=== PATIENT | female | born 1980 | race Caucasian/White ===

== ENCOUNTER 2025-03-23 09:13 | Emergency (ER) | payer OTHER, SELFPAY ==
[2025-03-23 09:16] VITALS: BP 150/111
[2025-03-23 09:29] VITALS: BP 129/60
--- NOTE | 2025-03-23 09:40 | ED.GENMED ---
History of Present Illness
General
Chief Complaint: Cardiac Symptoms
Source: patient
Exam Limitations: none
Time Seen by Provider: 03/23/25 09:23
History of Present Illness
History of Present Illness:
See MDM
Past History
Past History
ED Past Medical History: None
ED Past Surgical History: None
Social History
Tobacco: Non-smoker
Alcohol: None
Phy Exam
Physical Exam
Physical Exam:
See MDM
Course
Orders/Labs/Results
Orders:
Orders
03/23/25 09:18
Electrocardiogram (*1) Urgent
Reason for Study: Atrial Fibrillation
EKG- Treatment ONCE
03/23/25 10:01
Propranolol [Inderal] 10 mg PO NOW STA
03/23/25 10:17
Complete Blood Count/With Diff Urgent
Comprehensive Metabolic Panel Urgent
D-Dimer Urgent
TSH Reflex To Free T4 Urgent
Troponin I Urgent
Abnormal Lab Results
03/23/25
10:17
Neutrophils % 80.3 H %
(42.2-75.2)
Lymphocytes % 14.9 L %
(20.5-51.1)
Glucose 110 H mg/dl
(70-99)
Calcium 10.5 H mg/dl
(8.4-10.2)
Total Protein 8.6 H g/dl
(6.3-8.2)
03/23/25 10:17
03/23/25 10:17
Vital Signs
Initial and Last Documented VS:
Initial Vital Signs
Temp Pulse Resp BP Pulse Ox
97.6 F 105 16 150/111 99
03/23/25 09:16 03/23/25 09:16 03/23/25 09:16 03/23/25 09:16 03/23/25 09:16
Last Documented Vital Signs
Temp Pulse Resp BP Pulse Ox
97.6 F 95 20 116/69 98
03/23/25 09:16 03/23/25 11:30 03/23/25 11:30 03/23/25 11:00 03/23/25 11:30
MDM/Problems Addressed
Differential Diagnosis Includes:
Note:
CHIEF COMPLAINT(S)
Dizziness, lightheadedness, and a feeling of anxiety.
HISTORY OF PRESENT ILLNESS
The patient is a 44-year-old female who was referred to the emergency department from an urgent care center with a suspected case of atrial flutter. The patient reports experiencing dizziness, lightheadedness, and excessive sweating while
exercising, along with a general sense of anxiety. She denies any chest pain or shortness of breath, although she describes a 'weird' feeling. The patient was informed about atrial fibrillation at urgent care but seemed unclear about the conditions
details. Upon review, it was found that the urgent care had mistakenly diagnosed atrial flutter based on EKG readings interpreted by a computer system. However, after reviewing the patients EKG, it was noted that she has a normal rhythm that is
faster than usual but not indicative of atrial fibrillation or flutter. The patient is preparing for an upcoming vacation and is anxious about her health status.
PHYSICAL EXAM
General: Alert, no acute distress.
Skin: Warm, dry.
Head: Normocephalic, atraumatic.
Neck: Supple, trachea midline.
Eye, Ears, Nose, Mouth, and Throat: Oral mucosa moist.
Cardiovascular: Normal peripheral perfusion, No edema. Regular rate and rhythm. Initial tachycardia resolving without intervention
Respiratory: Respirations are non-labored.
Gastrointestinal: Abdomen nondistended..
Musculoskeletal: Normal range of motion, normal strength.
Neurological: No focal neurological deficit observed.
Psychiatric: Cooperative, mildly anxious
PROBLEM LIST
- Acute dizziness and lightheadedness
- Anxiety
- Tachycardia
PLAN
- Perform blood work to assess risk for blood clots and evaluate heart function to rule out myocardial infarction.
- Repeat EKG to confirm current heart rhythm.
- Administer Propranolol to manage heart rate and anxiety symptoms.
- Educate the patient about the nature of her heart rhythm findings and reassure her regarding the stability of her condition.
- Ensure patient readiness for upcoming travel and provide advice regarding her health status and travel plans.
DIFFERENTIAL DIAGNOSIS
The Differential Diagnosis includes, in no particular order and is not limited to:
- Anxiety-induced tachycardia
- Physiological sinus tachycardia
- Electrolyte imbalances
- Dehydration
- Hyperthyroidism
- Panic disorder
- Pheochromocytoma
- Postural Orthostatic Tachycardia Syndrome (POTS)
- Cardiomyopathy
- Myocarditis
EKG
My independent EKG interpretation is:
- Rhythm: Sinus tachycardia
- Heart Rate: 103 beats per minute
- [place] Interval: Within normal limits
- QRS Duration: Within normal limits
- QT Interval: Within normal limits
- M[place]: Not specified
- ST Segment: No evidence of ST elevation
- T Waves: Not specified
- Arrhythmias: None observed
SUMMARY OF ENCOUNTER
The patient, a 44-year-old female, presented to the emergency department with complaints of dizziness, lightheadedness, and anxiety. She had been referred from an urgent care center with a suspected case of atrial fibrillation. Upon evaluation, her
EKG showed sinus tachycardia but no atrial fibrillation or flutter. Her workup in the emergency department, including a negative D-Dimer and negative troponin, indicated a low risk for pulmonary embolism and acute coronary syndrome. Her symptoms
were managed with propranolol, and she reported feeling comfortable returning home to rest.
DISPOSITION
Discharge.
PLAN
The patient will be educated on recognizing any worsening symptoms and advised on the signs that would necessitate a return to the emergency department. A follow-up with outpatient cardiology was discussed to further evaluate her cardiac status.
INDEPENDENT REVIEW OF LABS AND INTERPRETATION OF TESTS
My independent review of D-Dimer is negative, indicating a low likelihood of pulmonary embolism. My independent review of troponin is negative, reducing concern for acute coronary syndrome. My independent review of thyroid function tests is
negative, ruling out hyperthyroidism.
PATIENT EDUCATION AND COUNSELING
The patient was informed about her current heart rhythm findings and reassured about the stability of her condition. She was advised to rest and monitor for any new or worsening symptoms and provided with strict return precautions. Outpatient
cardiology follow-up was recommended.
FOLLOW-UP INSTRUCTIONS
The patient was advised to follow up with a monkey breeder for further evaluation of her heart status. She was also instructed to return to the emergency department if she experiences any new symptoms or if her current symptoms worsen.
MEDICATION RECONCILIATION
A prescription for propranolol was provided for managing her symptoms related to tachycardia and anxiety.
MEDICAL DECISION MAKING
-Complexity of Data Reviewed: Differential diagnosis considered included anxiety-induced tachycardia, physiological sinus tachycardia, electrolyte imbalances, dehydration, hyperthyroidism, panic disorder, pheochromocytoma, Postural Orthostatic
Tachycardia Syndrome (POTS), cardiomyopathy, myocarditis.
-Data:
Category 1:
My independent EKG interpretation is sinus tachycardia with a heart rate of 103 beats per minute, within normal [place], QRS, and QT intervals.
-Risk: Prescription medication was prescribed and included propranolol for symptom management.
DIAGNOSIS
- Sinus tachycardia (R00.0)
*Pulse Oximetry
SaO2: 99
Oxygen Mode of Delivery: Room air
Patient hypoxic: no
*Critical Care Note
Total Time (30-74mins, 75-104mins- exclusive of procedures): Not Applicable
ED Attending Note
-
Portions of this chart may have been created with voice recognition software.� Occasional wrong word or��sound alike� substitutions may have occurred due to the inherent limitations of voice recognition software.
Discharge Plan
Departure
Patient Disposition: Home (Routine Discharge)
Date of Disposition: 03/23/25
Time of Disposition: 11:48
Patient with high blood pressure during this ER visit?: No
Discharge Problem:
Tachycardia
Instructions: Sinus Tachycardia (DC)
Prescriptions:
New
propranolol 10 mg tablet
10 mg PO BID PRN (Reason: Palpitations ) Qty: 60 0RF
Referrals:
Kellie Zuñiga MD [Active, Cardiology]
Lara Haley DO [Family Provider, Family Practice]
Activity Restrictions/Additional Instructions:
Please return for any worsening symptoms.
You may return at any time if you have further concerns.
Please follow up with your doctor at the first available appointment, preferably this week.
Please make an appointment with the monkey breeder when you return from vacation.
Thank you for choosing [facility].
Interventions
Interventions:
*Risk Screen - Suicide Last Done: 03/23/25 09:18
*Neglect/Abuse Screening Last Done: 03/23/25 09:18
Discharge Date and Time
Print Language: TURKISH
[2025-03-23 10:00] VITALS: BP 116/70
[2025-03-23] MEDS: INDERAL 10 MG PO (10:23)
[2025-03-23 10:33] LABS: Hematocrit 39.8 % (37.0-47.0); Hemoglobin 13.8 g/dL (12.0-16.0); Mean Corp Hgb Conc. 34.7 g/dL (33.0-37.0); Mean Corpuscular Volume 81.1 fL (81.0-99.0); Nucleated Red Blood Cells % 0 %; Platelet Count 260 10^3/uL (130-400); Red Cell Dist. Width 12.1 % (11.5-14.5)
[2025-03-23 10:40] LABS: D-Dimer 0.31 ug/mlFEU (0.00-0.50)
[2025-03-23 10:46] LABS: ALT (SGPT) 24 U/L (0-35); AST (SGOT) 22 U/L (14-36); Albumin 4.8 g/dl (3.5-5.0); Alkaline Phosphatase 57 U/L (38-126); Blood Urea Nitrogen 17 mg/dl (7-17); Calcium 10.5 mg/dl (8.4-10.2); Carbon Dioxide 25 mmol/L (22-30); Chloride 105 mmol/L (98-107); Glucose 110 mg/dl (70-99); Potassium 4.6 mmol/L (3.5-5.1); Sodium 136 mmol/L (135-145); Total Protein 8.6 g/dl (6.3-8.2); eGFR > 60.00
[2025-03-23 10:57] LABS: Troponin I < 0.012 ng/ml
[2025-03-23 11:00] VITALS: BP 116/69
== END 2025-03-23 12:15 | disposition home or self-care (01) ==
LOC: EMR 09:13
PROVIDERS: EMERGENCY PHYSICIAN Student in an Organized Health Care Education/Training Program; FAMILY PHYSICIAN Family Medicine
DX: R00.0 Tachycardia, unspecified (principal); R42 Dizziness and giddiness; F41.9 Anxiety disorder, unspecified
CPT/HCPCS: 99284; 80053; 84443; 84484; 85025; 85379; 93005